=== PATIENT | female | born 1985 | race Two or more races ===

== ENCOUNTER 2019-06-24 06:27 | Inpatient (IN) | payer OTHER ==
[~2019-06-24] VITALS: Ht 157.5 cm; Wt 3.6 kg
[2019-06-24] MEDS ORDERED: PRENATAL TABLE1 EAC1 PO (09:51)
[2019-06-27] MEDS ORDERED: CODE1TAB37 PO (11:27)
[2019-06-27] MEDS ORDERED: NAPR500T14 PO (11:27)
== END 2019-06-27 13:36 | disposition home or self-care (01) | DRG 788 ==
LOC: LDR 06:27 → OB/GYN 06:27
PROVIDERS: ADMIT Obstetrics & Gynecology
PROC: 3E033VJ Introduction of Other Hormone into Peripheral Vein, Percutaneous Approach (ICD-10-PCS; 2019-06-24)
PROC: 4A1HXCZ Monitoring of Products of Conception, Cardiac Rate, External Approach (ICD-10-PCS; 2019-06-24)
PROC: 10D00Z1 Extraction of Products of Conception, Low, Open Approach (ICD-10-PCS; principal; 2019-06-24 17:00)
DX: O82 Encounter for cesarean delivery without indication (principal); O61.0 Failed medical induction of labor; Z3A.39 39 weeks gestation of pregnancy; Z37.0 Single live birth